=== PATIENT | female | born 1945 | race Caucasian/White ===

== ENCOUNTER 2016-05-19 10:51 | Inpatient (IN) | payer OTHER ==
[2016-05-12 10:44] LABS: ASCORBIC ACID (UR NOT ORDER) NEG (NEG); BILIRUBIN, URINE NEGATIVE (NEG); KETONE, URINE NEGATIVE (NEG); LEUKOCYTE ESTERASE(NOT OR SMALL (NEG); WBC (NOT ORDERED) (RFLEX) 2 (0-5)
[2016-05-12 10:45] LABS: INTERNATIONAL NORMAL RATI 0.9 UNITS (-); PARTIAL THROMBO TIME 24.7 SEC (22.5-37.2); PROTIME (NOT ORD) 12.5 SEC (12.0-14.5)
--- NOTE | ~2016-05-19 | DS ---
Discharge Summary [facility] [address] [place]. [address] NAME: GUERLINE FENG : 47 STATUS : DIS IN PAT#: [id number] AGE: 70 ADM/REG DATE : 05/19/16 MR#: [id number] REPORT SERV DATE: 05/31/16 DICTATED BY: NAVARRO PINEDA DATE: 05/31/16 REPORT STATUS : Draft TRANSCRIBED BY: ARTURO DATE: 05/31/16 Data Collection from hospitalization DISCHARGE DIAGNOSES: 1. Right knee arthritis. 2. Hypertension. 3. History of breast cancer. 4. Hypothyroidism. 5. History of hepatitis A. 6. Gout. CONSULTATIONS: None. PROCEDURES PERFORMED: Right total knee arthroplasty, 05/19/2016. PATHOLOGY: Bone and soft tissue, right knee arthroplasty-degenerative joint disease with eburnation. No infection or neoplasm. DISCHARGE MEDICATIONS: Aspirin 81 mg daily, Zetia 10 mg every evening, ferrous sulfate 325 mg daily, Cove 5/325 one to two tablets every four hours as needed, Femara 2.5 mg every evening, Synthroid 150 mcg every morning, Singulair 10 mg every evening, Prilosec 20 mg every evening, Zofran 4 mg every six hours as needed, Pravachol 40 mg at bedtime, Benemid 500 mg every evening, Coumadin as instructed. CONDITION AT DISCHARGE: Stable. DISPOSITION: The patient was discharged home to be followed by home health care on a regular diet with activities as instructed. She would follow up with Tang Coffman, 06/11/[address] Navarro Pineda, 06/29/2016. HOSPITAL COURSE: This is a 70-year-old female, who has right knee arthritis. She has bilateral knee pain. Treatment options were discussed and it was elected to proceed with surgical intervention. She was admitted to the hospital at this time for further evaluation and treatment. Upon admission, she was taken to the operating room, where she underwent the above-mentioned procedure. She tolerated this well and there were no complications. On postop day #1, she was doing well. She was up sitting in a bedside chair. AMITA hose were in place. Over the next couple of days, she had some mild nausea and she continued to do well. She was up sitting in the bedside chair. Discharge planning was performed. She was evaluated by Occupational Therapy. On 05/22/2016, she still had some nausea, but no vomiting. She said she had taken her pain medication on an empty stomach. She was instructed to eat with her medications. Discharge instructions were given. Due to her improved and stable condition, she was discharged home to be followed by home health care with the above-stated instructions. Information collected by: Allie Wallace Discharge Summary [address] [address] NAME: GUERLINE FENG : 47 STATUS : DIS IN PAT#: [id number] AGE: 70 ADM/REG DATE : 05/19/16 MR#: [id number] REPORT SERV DATE: 05/31/16 DICTATED BY: NAVARRO PINEDA DATE: 05/31/16 REPORT STATUS : Draft TRANSCRIBED BY: ARTURO DATE: 05/31/16 I submit the above information as my discharge summary. TISHA/ARTURO Navarro Pineda M.D. / [id number] CC: Kenzie Arvizu M.D.
--- NOTE | ~2016-05-19 | OP ---
Record Of Operation [facility] [address] [place]. [address] NAME: GUERLINE FENG : 47 STATUS : ADM IN PAT#: [id number] AGE: 70 ADM/REG DATE : 05/19/16 MR#: [id number] REPORT SERV DATE: 05/19/16 DICTATED BY: NAVARRO PINEDA DATE: 05/19/16 REPORT STATUS : Draft TRANSCRIBED BY: MODL DATE: 05/19/16 DATE OF PROCEDURE: 05/19/2016 PREOPERATIVE DIAGNOSIS: Right knee arthritis. POSTOPERATIVE DIAGNOSIS: Right knee arthritis. PROCEDURE PERFORMED: Right total knee arthroplasty. SURGEON: Navarro Pineda M.D. ROUTING CLERK: Kelly Marruof. ANESTHESIA: General with adductor block and local infusion. PROCEDURE IN DETAIL: The patient is clearly identified and after obtaining informed consent is brought to the operating room at [facility] where anesthesia is induced uneventfully with excellent anesthetic effect. Subsequently, the affected extremity is prepped and draped in the usual manner and after an appropriate time-out procedure is performed, via an anterior approach, the skin is divided, fascial planes are elevated, paramedial approach to the knee is made. The structures themselves are elevated, excised, and debrided were appropriate, whereupon the patella is carefully everted, calipered, and planed and with the size and type being reproduced with the appropriate-size patella, trialing is performed successfully. At this point, the patella is then carefully subluxed laterally, the knee is flexed, osteophytes around the distal femur are removed, followed by the ACL being divided. The femoral canal is entered and vented, at which point with the intramedullary guide being utilized, the distal femoral cut is made. At this point, the tibia is carefully subluxed anteriorly. The surrounding soft tissues to the tibia are protected with Hohmann retractors, at which point the extramedullary guide is utilized to perform the proximal tibial cut and after cleansing these tissues, the spacer block is utilized in extension to confirm excellent extension, stability, and alignment. The guiding pins are then all carefully removed and the knee is then flexed. The femur is sized, whereupon the anterior, posterior, chamfer, and box cuts are made appropriately. The proximal tibia then is assessed. Osteophytes and surrounding soft tissues are removed and debrided were appropriate. Posterior osteophytes are removed as well. The menisci are excised and thus concluding trialings performed successfully. The proximal tibia then is carefully prepared utilizing proper cement technique. The permanent implants have been carefully placed into position uneventfully where upon copious irrigations performed, the permanent tibial implants applied and thus concluded. The joint was then copiously irrigated, at which point it is closed carefully in layers including Vicryl and cher for the skin, at which point Aquacel sterile dressing is applied. The patient is allowed to awaken and is transferred to the bed and subsequently to the recovery room in stable condition having tolerated the procedure well. ESTIMATED BLOOD LOSS: 50. Record Of Operation [facility] [address] [facility] [place]. [address] NAME: GUERLINE FENG : 47 STATUS : ADM IN [facility]#: [id number] AGE: 70 ADM/REG DATE : 05/19/16 MR#: [id number] REPORT SERV DATE: 05/19/16 DICTATED BY: NAVARRO PINEDA DATE: 05/19/16 REPORT STATUS : Draft TRANSCRIBED BY: ARTURO DATE: 05/19/16 FLUIDS: 200. TOURNIQUET TIME: 36 minutes. PATHOLOGY: Sent specimen. MICROBIOLOGY: None. COMPLICATIONS: None. SPONGE AND NEEDLE COUNTS: Reportedly correct. ANTIBIOTICS: Administered appropriately preoperatively and ordered to be discontinued within 23 hours. IMPLANTS: Attune knee by DePuy; femur 5 narrow, tibia 3, patella 35, polyethylene 5/10. CAMILLA/ARTURO Navarro Pineda M.D. / [id number] CC: Navarro Pineda M.D.
[~2016-05-19 10:51] MED LIST: ASAB PO; BENEMID500 PO; FEMARA PO; FERROUS SULF325 M1 PO; LOP25 PO; NITROII20C TOP; PRAVACHOL40 MG PO; PRILO PO; SINGULAIR1 PO; SYN.15 PO; ZETIA PO
[2016-05-20 04:23] LABS: HEMOGLOBIN 13.4 g/dL (12.0-16.0)
[2016-05-20 04:26] LABS: INTERNATIONAL NORMAL RATI 1.1 UNITS (-); PROTIME (NOT ORD) 14.1 SEC (12.0-14.5)
[2016-05-20 04:36] LABS: CALCIUM, SERUM 8.3 MG/DL (8.5-10.4); CHLORIDE, SERUM 106 MMOL/L (96-112); CO2 (CARBON DIOXIDE) 24 MMOL/L (24-34); GFR AFRICAN AMERICAN 67 ML/MIN (>=60); GFR NON AFRICAN AMERICAN 57 ML/MIN (>=60); POTASSIUM, SERUM 4.8 MMOL/L (3.5-5.3); SODIUM, SERUM 139 MMOL/L (135-148)
[2016-05-20 04:39] LABS: BUN (BLOOD UREA NITROGEN) 25 MG/DL (6-23); GLUCOSE, SERUM 161 MG/DL (60-99)
[2016-05-21 04:16] LABS: HEMATOCRIT 36.9 % (36.0-48.0); HEMOGLOBIN 12.2 g/dL (12.0-16.0)
[2016-05-21 04:23] LABS: INTERNATIONAL NORMAL RATI 1.2 UNITS (-)
[2016-05-21] MEDS ORDERED: NORCO1 TA1 PO (10:29)
[2016-05-21] MEDS ORDERED: C5 (10:29)
[2016-05-21] MEDS ORDERED: ZOFRAN4 PO (10:29)
[2016-05-22 05:07] LABS: HEMATOCRIT 36.3 % (36.0-48.0); HEMOGLOBIN 12.2 g/dL (12.0-16.0); INTERNATIONAL NORMAL RATI 1.6 UNITS (-)
[2016-05-22 05:08] LABS: PROTIME (NOT ORD) 18.6 SEC (12.0-14.5)
== END 2016-05-22 12:31 | disposition home or self-care (01) | DRG 470 ==
LOC: SDC/OF 10:51 → PACU 15:10 → 3JRC 17:58
PROVIDERS: Orthopaedic Surgery
PROC: 3E0T3CZ (ICD-10-PCS; 2016-05-19)
PROC: 0SRC0J9 Replacement of Right Knee Joint with Synthetic Substitute, Cemented, Open Approach (ICD-10-PCS; principal; 2016-05-19 12:30)
DX: M17.11 Unilateral primary osteoarthritis, right knee (principal); I10 Essential (primary) hypertension; E03.9 Hypothyroidism, unspecified; E78.5 Hyperlipidemia, unspecified; K21.9 Gastro-esophageal reflux disease without esophagitis; Z85.3 Personal history of malignant neoplasm of breast; Z92.3 Personal history of irradiation; Z92.21 Personal history of antineoplastic chemotherapy; Z98.890 Other specified postprocedural states; Z79.899 Other long term (current) drug therapy; Z79.82 Long term (current) use of aspirin
CPT/HCPCS: 36415; 71020; 80048; 81001; 85014; 85018; 85610; 85730; 86850; 86900; 86901; 87086; 87641; 88305; 88311; 97110-GP; 97116-GP; 97150-GP; 97161-GP; 97165-GO; A9270-GY; C1776; J0690; J1170; J1885; J2250; J2274; J2405; J2710; J2795; J3010